=== PATIENT | male | born 1965 | race Caucasian/White ===

== ENCOUNTER 2017-03-24 14:10 | Emergency (ER) | payer MEDICAID ==
[~2017-03-24] VITALS: Ht 167.6 cm; Wt 103.5 kg
[2017-03-24 14:16] VITALS: BP 148/92
== END 2017-03-24 15:45 | disposition home or self-care (01) ==
LOC: EDBD 14:10 → ED 15:30
DX: J20.9 Acute bronchitis, unspecified (principal); E11.9 Type 2 diabetes mellitus without complications
CPT/HCPCS: 71020; 99284